=== PATIENT | female | born 1955 | race Two or more races ===

== ENCOUNTER 2025-02-08 20:07 | Emergency (ER) | payer OTHER, MEDICARE, MEDICAID ==
[~2025-02-08] VITALS: Ht 152.4 cm; Wt 74.0 kg
[2025-02-08 20:20] VITALS: O2SAT 96
[2025-02-08] MEDS: ACETAMINOPHEN 500MG TABLET PO SCH (21:22)
[2025-02-08] MEDS: ACETAMINOPHEN 325MG TABLET PO ONE (21:25)
[2025-02-08] MEDS ORDERED: CYCL5TAB3 MT (22:14)
[2025-02-08] MEDS ORDERED: TOPUD MT (22:14)
[2025-02-08] MEDS ORDERED: ONDANSETRON HCL 4MG/2ML INJ ONE (22:47)
[2025-02-08] MEDS: SODIUM CHLORIDE 0.9% 2,000 ML IV ONE (23:01)
[2025-02-08] MEDS: ONDANSETRON HCL 4MG/2ML INJ IV ONE (23:01)
[2025-02-08] MEDS: SODIUM CHLORIDE 0.9% 1,000 ML IV ONE (23:01)
[2025-02-08] MEDS: [UNRECOGNIZED DRUG - MIXTURE] IV NR (23:06)
[2025-02-08] MEDS: TRANEXAMIC ACID 1,000MG/10ML IV ONE (23:07)
[2025-02-08] MEDS: HUMAN-LANS PROTHROMBIN CPLX (PCC) 1000 UNITS VIAL IV NR (23:15)
[2025-02-08 23:19] LABS: BASOPHILS % 0.5 % (0.0-2.0); EOSINOPHILS % 0.2 % (0.0-5.0); HEMATOCRIT. 30.8 % (36.0-48.0); HEMOGLOBIN. 9.8 g/dL (12.0-16.0); LYMPHOCYTES % 24.0 % (20.0-50.0); MEAN PLATELET VOLUME 7.3 fl (7.4-10.4); MONOCYTES % 8.7 % (2.0-8.0); NEUTROPHILS % 66.6 % (40.0-76.0); PLATELET 622 x1000/uL (130-400); RED BLOOD CELL COUNT 3.35 mill/uL (4.2-5.4); RED CELL DISTRIBUTION WIDTH 18.0 % (11.6-14.6)
[2025-02-08] MEDS: MORPHINE SULFATE 2 MG/ML INJ (NOT FOR IM USE) IV ONE (23:26)
[2025-02-08 23:29] LABS: INR 1.2
[2025-02-08 23:31] LABS: CREATININE 1.1 mg/dL (0.6-1.0); PROTEIN TOTAL 6.0 g/dL (6.0-8.3); UREA NITROGEN BLOOD 17 mg/dL (9-23)
[2025-02-08 23:32] LABS: TROPONIN I HIGH SENSITIVITY 10 ng/L (3.0-34)
[2025-02-08 23:33] LABS: ASPARTATE AMINOTRANSFERASE 78 IU/L (<34); BILIRUBIN DIRECT 0.2 mg/dL (<=3.0); BILIRUBIN TOTAL 0.6 mg/dL (0.1-1.0)
[2025-02-08 23:35] VITALS: BP 133/79; PULSE 95; RESP 20; TEMP 36.6; O2SAT 98
== END 2025-02-08 23:40 | disposition short-term general hospital (02) ==
LOC: ER 20:07
DX: K66.1 Hemoperitoneum (principal); R57.8 Other shock; R07.9 Chest pain, unspecified; M54.2 Cervicalgia; E11.9 Type 2 diabetes mellitus without complications; I10 Essential (primary) hypertension; Z79.01 Long term (current) use of anticoagulants; Z88.0 Allergy status to penicillin; V89.2XXA Person injured in unspecified motor-vehicle accident, traffic, initial encounter; Y92.410 Unspecified street and highway as the place of occurrence of the external cause; Y93.89 Activity, other specified; Y99.8 Other external cause status
CPT/HCPCS: 80076; 80048; 80320; 83605; 83690; 85025; 85610; 85730; 86850; 86900; 86901; 86920; 84484; 36415; 70450; 72125; 71250; 93005; 96365; 96375; 99291; J2405; C9132; J2270; J7030; P9016; G0480